=== PATIENT | female | born 1935 | race Caucasian/White ===

== ENCOUNTER 2018-08-07 18:57 | Inpatient (IN) | payer MEDICARE ==
[~2018-08-07] VITALS: Ht 170.2 cm; Wt 66.2 kg
[~2018-08-07 18:57] MED LIST: ALBUMIN (HUMAN) 25% 50 ML IV ONE; ALEN70TA10 PO; AMINOCAPROIC ACID 250 MG/ML 20 ML VIAL IV ONE; ASPI-555 PO; CALC-190 PO; CALCIUM CHLORIDE 100 MG/ML 10 ML SYG IVP ONE; FURO20TA6 PO; HEPARIN SODIUM 10000 UNIT/ML 1ML VIAL IJ ONE; HEPARIN SODIUM 1000UNIT/ML 10ML VIAL IV ONE; LATA2.5D2 OU; MAGNESIUM SULFATE 1 GM/2 ML VIAL IM ONE; MANNITOL 25% 50ML VIAL IV ONE; METO25 PO; NITR0.4T50 SL; PHENYLEPHRINE HCL 10 MG/ML 1ML VIAL IV ONE; SIMV20TA6 PO; SODIUM BICARB 8.4% 50ML SYRINGE IVP ONE; URSO500T9 PO
[2018-08-07] MEDS ORDERED: ASPIRIN 325 MG TABLET ONE (19:34)
[2018-08-07] MEDS ORDERED: DILTIAZEM HCL 125 MG/25 ML VIAL IV ONE ×2 (19:36→20:03)
[2018-08-07 19:50] LABS: BASOPHILS % (AUTO) 0.4 % (0.0-5.0); LYMPHOCYTES % (AUTO) 24.6 % (21.0-51.0); MEAN CORPUSCULAR HGB CONC 33.1 g/dL (32.0-36.0); MEAN CORPUSCULAR VOLUME 84.5 fL (79-99); MONOCYTES % (AUTO) 9.6 % (3.0-13.0); NEUTROPHILS % (AUTO) 64.4 % (40.0-77.0); NUCLEATED RED BLOOD CELLS 0.2 % (0.0-0.19); PLATELET COUNT (AUTO) 202 K/uL (130-400); RED BLOOD CELL COUNT(AUTO) 5.08 MIL/uL (4.00-5.50); RED CELL DISTRIBUTION WIDTH 16.3 % (11.0-15.5); WHITE BLOOD COUNT (AUTO) 6.9 K/uL (4.8-10.8)
[2018-08-07 20:00] LABS: CREATININE 0.9 mg/dL (0.5-1.5); POTASSIUM 3.3 mmol/L (3.5-5.1)
[2018-08-07 20:03] LABS: PARTIAL THROMBOPLASTIN TIME 27.1 SEC (26.3-35.5); PROTHROMBIN TIME 10.5 SEC (9.6-11.6)
[2018-08-07 20:11] LABS: ALBUMIN 3.9 g/dL (3.5-5.0); BILIRUBIN,TOTAL 0.6 mg/dL (0.2-1.0); TOTAL PROTEIN, SERUM 7.4 g/dL (6.0-8.3)
[2018-08-07] MEDS ORDERED: POTASSIUM CHLORIDE 20 MEQ ERTAB PO ONE (20:17)
[2018-08-07] MEDS: URSODIOL 500 MG PO SCH (21:00)
[2018-08-07] MEDS ORDERED: LATANOPROST 2.5 ML DROPS OU SCH (21:00)
[2018-08-07] MEDS: CALCIUM 600 + VITAMIN D 400 TABLET PO SCH (21:00)
[2018-08-07] MEDS: SIMVASTATIN 20 MG TABLET PO SCH (21:00)
[2018-08-07] MEDS ORDERED: NITROGLYCERIN 0.4 MG SL TAB SL SCH (21:00)
[2018-08-07] MEDS ORDERED: METOPROLOL TARTRATE 25 MG TAB PO SCH (21:00)
[2018-08-07] MEDS ORDERED: ONDANSETRON HCL 4 MG/2 ML VIAL IV PRN (21:15)
[2018-08-07] MEDS ORDERED: DILTIAZEM HCL 125 MG/25 ML 125 MG in SODIUM CHLORIDE 0.9% 100 ML IV PRN (21:15)
[2018-08-07] MEDS ORDERED: ACETAMINOPHEN 325 MG TAB PO PRN ×2 (21:15)
[2018-08-07] MEDS ORDERED: MORPHINE SULFATE 4 MG/1ML SYG IV PRN (21:15)
[2018-08-07 23:00] VITALS: BP 121/60
[2018-08-08] VITALS (12 sets, daily range): BP systolic 119–146; BP diastolic 53–79
[2018-08-08] MEDS ORDERED: ALENDRONATE SODIUM 35 MG TAB PO SCH (06:30)
[2018-08-08] MEDS: URSODIOL 500 MG PO SCH ×2 (09:00→21:00)
[2018-08-08] MEDS: ENOXAPARIN SODIUM 30 MG/0.3 ML SQ SCH ×2 (09:00→21:37)
[2018-08-08] MEDS ORDERED: SODIUM CHLORIDE 0.9% 500ML 500 ML IV SCH (09:48)
[2018-08-08] MEDS ORDERED: POTASSIUM CHLORIDE 10% ELIXIR 20 MEQ/15 ML UDCUP PO SCH (10:00)
[2018-08-08] MEDS: FAMOTIDINE/PF 20 MG/2 ML VIAL IV SCH ×2 (10:11→21:37)
[2018-08-08] MEDS: FUROSEMIDE 10 MG/ML 2ML VIAL IV SCH ×2 (10:11→21:37)
[2018-08-08] MEDS: CALCIUM 600 + VITAMIN D 400 TABLET PO SCH ×2 (10:12→21:37)
[2018-08-08] MEDS: ASPIRIN 325 MG TABLET PO SCH (10:12)
[2018-08-08 10:22] LABS: CREATININE 0.7 mg/dL (0.5-1.5); POTASSIUM 3.9 mmol/L (3.5-5.1)
--- NOTE | 2018-08-08 10:30 | NUR ---
NPO STATUS FOR CARDIAC CATH THIS AFTERNOON BY DR. DAVID.
[2018-08-08 10:48] LABS: PARTIAL THROMBOPLASTIN TIME 27.2 SEC (26.3-35.5)
[2018-08-08 10:54] LABS: INR 1.02 (0.85-1.15); PROTHROMBIN TIME 10.7 SEC (9.6-11.6)
--- NOTE | 2018-08-08 14:00 | NUR ---
TAKEN TO FACILITY ATTENDANT VIA BED.
[2018-08-08] MEDS ORDERED: NITROGLYCERIN 5 MG/ML 10 ML VIAL IV ONE (14:08)
[2018-08-08] MEDS ORDERED: IOHEXOL 350 MG/ML 100ML INFUS..BTL IV ONE ×2 (14:08→14:10)
[2018-08-08] MEDS ORDERED: IOHEXOL-350 50ML VIAL IV ONE (14:08)
[2018-08-08] MEDS ORDERED: LIDOCAINE HCL 2% 20ML ONE (14:08)
--- NOTE | 2018-08-08 14:54 | NUR ---
CLAIRE PLAN PATIENT DOWN FOR PROCEDURE. Addendum: 08/08/18 at 1455 by ROMAN CAPONE RN CM Amended: Links added.
--- NOTE | 2018-08-08 15:55 | NUR ---
BACK FROM [facility] RN. RIGHT GROIN WITH DRESSING DRY AND INTACT. BILATERAL PEDAL PULSES STRONG. INSTRUCTED ON BEDREST FOR 4 HOURS, VERBALIZED UNDERSTANDING. NORMAL SALINE AT 80CC/HR INITIATED X 1 LITER. WILL CONTINUE TO MONITOR.
[2018-08-08] MEDS: SODIUM CHLORIDE 0.9% 1000ML 1,000 ML IV SCH ×2 (16:00→22:01)
--- NOTE | 2018-08-08 18:47 | NUR ---
PER IGLESIA HARDY RN WITH DR. LE , PT WILL POSSIBLY HAVE MITRAL VALVE REPAIR DONE ON 08/10/18.
--- NOTE | 2018-08-08 19:40 | NUR ---
S/P LEFT HEART CATH. RT. GROIN SOFT WITHOUT BLEEDING OR HEMATOMA. PEDAL PULSES PALPABLE. BEDREST OVER AT 1999. REMINDED PATIENT NOT TO BEND OR LIFT RT LEG. PATIENT VERBALIZED UNDERSTANDING. WILL CONTINUE TO MONITOR.
--- NOTE | 2018-08-08 20:05 | NUR ---
BEDREST OVER. RT. GROIN CONTINUES TO BE SOFT WITHOUT BLEEDING OR HEMATOMA. PEDAL PULSES PALPABLE.
[2018-08-08] MEDS: SIMVASTATIN 20 MG TABLET PO SCH (21:38)
[2018-08-08] MEDS: METOPROLOL TARTRATE 25 MG TAB PO SCH (21:38)
--- NOTE | 2018-08-08 22:30 | NUR ---
RT. WOLF DC.
[2018-08-08] MEDS: LATANOPROST 2.5 ML DROPS OU SCH (22:37)
[2018-08-08 23:25] LABS: APPEARANCE,URINE Clear (CLEAR); BILIRUBIN,URINE Negative (NEGATIVE); COLOR,URINE Yellow (YELLOW); GLUCOSE, URINE (UA) Negative (NEGATIVE); KETONES,URINE Negative (NEGATIVE); LEUKOCYTE ESTERASE ,URINE Negative (NEGATIVE); NITRATE,URINE Negative (NEGATIVE); OCCULT BLOOD,URINE Negative (NEGATIVE); PH,URINE 6.5 (5.0-8.0); PROTEIN,URINE Negative (NEGATIVE); UROBILINOGEN,URINE 0.2 mg/dL (0.2-1.0)
[2018-08-09 03:00] VITALS: BP 140/82
--- NOTE | 2018-08-09 03:15 | NUR ---
RT. GROIN CONTINUES TO BE SOFT WITHOUT BLEEDING OR HEMATOMA. PEDAL PULSES PALPABLE.
[2018-08-09 03:49] LABS: HEMATOCRIT 40.6 % (36-48); MEAN CORPUSCULAR HEMOGLOBIN 27.6 pg (27.0-33.0); MEAN CORPUSCULAR HGB CONC 32.8 g/dL (32.0-36.0); PLATELET COUNT (AUTO) 216 K/uL (130-400); RED BLOOD CELL COUNT(AUTO) 4.84 MIL/uL (4.00-5.50); RED CELL DISTRIBUTION WIDTH 16.3 % (11.0-15.5); WHITE BLOOD COUNT (AUTO) 8.6 K/uL (4.8-10.8)
[2018-08-09 04:06] LABS: INR 1.02 (0.85-1.15); PARTIAL THROMBOPLASTIN TIME 29.6 SEC (26.3-35.5); PROTHROMBIN TIME 10.7 SEC (9.6-11.6)
[2018-08-09 04:12] LABS: ALBUMIN 3.3 g/dL (3.5-5.0); BILIRUBIN,TOTAL 0.6 mg/dL (0.2-1.0); CREATININE 0.6 mg/dL (0.5-1.5); POTASSIUM 3.6 mmol/L (3.5-5.1); TOTAL PROTEIN, SERUM 6.4 g/dL (6.0-8.3)
[2018-08-09 07:29] VITALS: BP 142/83
[2018-08-09] MEDS: CALCIUM 600 + VITAMIN D 400 TABLET PO SCH ×2 (08:13→23:05)
[2018-08-09] MEDS: ASPIRIN 325 MG TABLET PO SCH (08:13)
[2018-08-09] MEDS: METOPROLOL TARTRATE 25 MG TAB PO SCH ×2 (08:13→23:04)
[2018-08-09] MEDS: FAMOTIDINE/PF 20 MG/2 ML VIAL IV SCH ×2 (08:13→23:08)
[2018-08-09] MEDS: FUROSEMIDE 10 MG/ML 2ML VIAL IV SCH ×2 (08:14→23:04)
[2018-08-09] MEDS: URSODIOL 500 MG PO SCH ×2 (08:14→23:03)
--- NOTE | 2018-08-09 11:15 | NUR ---
PER IGLESIA HARDY RN (WITH DR. LE) MAY GIVE LOVENOX MORNING DOSE AND HOLD IT AFTERWARDS. PENDING SURGERY TOMORROW.
[2018-08-09 11:41] VITALS: BP 110/61
[2018-08-09] MEDS: ENOXAPARIN SODIUM 30 MG/0.3 ML SQ SCH (11:53)
--- NOTE | 2018-08-09 16:10 | NUR ---
DC PLAN VISITED WITH PATIENT. PATIENT LIVES WITH SPOUSE. INDEPENDENT ABLE TO PERFORM ADL'S. PATIENT HAS NO SERVICES OR DME'S. FEELS SAFE TO RETURN HOME. PLANNING TO GO BACK TO [place] ON DISCHARGE. Addendum: 08/09/18 at 1611 by ROMAN CAPONE RN CM Amended: Links added.
[2018-08-09 16:15] VITALS: BP 113/87
[2018-08-09] MEDS ORDERED: AMIODARONE HCL 150 MG in DEXTROSE 5%-WATER 100 ML IV SCH (19:30)
--- NOTE | 2018-08-09 19:30 | NUR ---
AMIODARONE DRIP INFUSING AT 33.3ML/HR.
[2018-08-09] MEDS ORDERED: AMIODARONE HCL 900 MG in DEXTROSE 5%-WATER 500 ML IV SCH (19:45)
[2018-08-09 19:48] VITALS: BP 130/67
--- NOTE | 2018-08-09 20:00 | NUR ---
REMINDED PATIENT NPO AFTER MIDNIGHT, MICS MVR IN A.M. PATIENT VERBALIZED UNDERSTANDING.
[2018-08-09] MEDS ORDERED: POTASSIUM CHLORIDE 10% ELIXIR 20 MEQ/15 ML UDCUP PO PRN (20:15)
[2018-08-09] MEDS ORDERED: POTASSIUM CHLORIDE 20MEQ/100ML 100 ML IV PRN (20:15)
[2018-08-09] MEDS ORDERED: LIDOCAINE HCL-MPF 1% 2ML VIAL IVP PRN (20:15)
[2018-08-09] MEDS ORDERED: POTASSIUM CHLORIDE 20 MEQ ERTAB PO PRN (20:15)
--- NOTE | 2018-08-09 20:15 | NUR ---
PATIENT PREPPED FOR SURGERY BY ELGIN ALVAREZ. 1ST HIBICLENS SHOWER STARTED.
[2018-08-09] MEDS ORDERED: POTASSIUM CHLORIDE 10 MEQ/TAB.SA PO ONE ×4 (20:16→23:00)
[2018-08-09] MEDS: LATANOPROST 2.5 ML DROPS OU SCH (20:33)
[2018-08-09] MEDS: SIMVASTATIN 20 MG TABLET PO SCH (23:05)
[2018-08-09 23:58] VITALS: BP 128/69
[2018-08-10] VITALS (54 sets, daily range): BP systolic 101–174; BP diastolic 37–72
--- NOTE | 2018-08-10 01:30 | NUR ---
AMIODARONE DRIP DECREASED TO 16.6ML/HR.
[2018-08-10 04:15] LABS: INR 1.02 (0.85-1.15); PROTHROMBIN TIME 10.7 SEC (9.6-11.6)
[2018-08-10 04:43] LABS: HEMATOCRIT 40.2 % (36-48); MEAN CORPUSCULAR HEMOGLOBIN 28.1 pg (27.0-33.0); MEAN CORPUSCULAR HGB CONC 33.4 g/dL (32.0-36.0); MEAN CORPUSCULAR VOLUME 84.2 fL (79-99); PLATELET COUNT (AUTO) 212 K/uL (130-400); RED BLOOD CELL COUNT(AUTO) 4.78 MIL/uL (4.00-5.50); RED CELL DISTRIBUTION WIDTH 16.3 % (11.0-15.5)
[2018-08-10 04:45] LABS: CREATININE 0.7 mg/dL (0.5-1.5); POTASSIUM 4.1 mmol/L (3.5-5.1)
--- NOTE | 2018-08-10 05:00 | NUR ---
2ND HIBICLENS SHOWER STARTED.
[2018-08-10] MEDS: METOPROLOL TARTRATE 25 MG TAB PO SCH (06:54)
--- NOTE | 2018-08-10 06:55 | NUR ---
METOPROLOL 75MG PO GIVEN. O.R. NURSES WITH PATIENT. PATIENT TAKEN TO O.R.
[2018-08-10] MEDS ORDERED: BACITRACIN 50,000 UNIT VIAL ONE (07:26)
[2018-08-10] MEDS ORDERED: THROMBIN-JMI 5000 UNIT/VIAL TP ONE (07:32)
[2018-08-10] MEDS ORDERED: DELNIDO FORMULA 1 BAG IV ONE (07:32)
[2018-08-10] MEDS ORDERED: NOREPINEPHRINE BITARTRATE 1 MG/1 ML ML IV ONE (07:57)
[2018-08-10] MEDS ORDERED: ESMOLOL HCL 10 MG/ML 10 ML VIAL ONE (07:57)
[2018-08-10] MEDS ORDERED: PROTAMINE SULFATE 10 MG/ML 25ML VIAL IV ONE (07:57)
[2018-08-10] MEDS ORDERED: LIDOCAINE PF 2% 5ML ABBOJECT ONE (07:57)
[2018-08-10] MEDS ORDERED: HEPARIN SODIUM 1000UNIT/ML 10ML VIAL ONE ×2 (07:57→11:17)
[2018-08-10] MEDS ORDERED: EPINEPHRINE 1 MG/ML AMPULE ONE (07:57)
[2018-08-10] MEDS ORDERED: SODIUM BICARB 50MEQ 50ML VIAL ONE (07:57)
[2018-08-10] MEDS ORDERED: AMINOCAPROIC ACID 250 MG/ML 20 ML VIAL IV ONE (07:57)
[2018-08-10] MEDS ORDERED: ROCURONIUM 10MG/1ML SYR 10 MG/ML ML ONE (07:58)
[2018-08-10] MEDS ORDERED: MIDAZOLAM HCL 1 MG/ML 5ML VIAL ONE (07:58)
[2018-08-10] MEDS ORDERED: FENTANYL CITRATE PF 50 MCG/1 ML 20ML VIAL IJ ONE (07:58)
[2018-08-10] MEDS ORDERED: PROPOFOL 10 MG/ML 20ML VIAL IV ONE (07:58)
[2018-08-10] MEDS ORDERED: KETAMINE 50MG/ML SYRINGE 50 MG/ML DISP.SYRIN IV ONE (07:59)
[2018-08-10] MEDS ORDERED: NITROGLYCERIN 50 MG/D5% WATER 1 BOT ONE (08:02)
[2018-08-10] MEDS ORDERED: AMIODARONE HCL 50 MG/ML 3 ML VIAL ONE (08:02)
[2018-08-10] MEDS ORDERED: CEFUROXIME SODIUM 1.5 GM VIAL ONE (08:33)
[2018-08-10 08:35] LABS: ABG BASE EXCESS -4.1 mmol/L (-2.0-3.0); ABG HCO3 19.8 mmol/L (21.0-28.0); ABG OXYGEN SATURATION 99.5 % (95.0-99.0); ABG PCO2 33 mmHg (32-45)
[2018-08-10] MEDS ORDERED: OCTYL 2-CYANOACRYLATE 1 EACH TP ONE (08:49)
[2018-08-10] MEDS: FAMOTIDINE/PF 20 MG/2 ML VIAL IV SCH ×3 (09:00→21:00)
[2018-08-10] MEDS ORDERED: MILRINONE-D5W 20 MG/100 ML 100 ML IV ONE (09:28)
[2018-08-10] MEDS ORDERED: SODIUM CHLORIDE 0.9% 1000ML 1,000 ML IV ONE (09:48)
[2018-08-10] MEDS ORDERED: SODIUM CHLORIDE 0.9% 500ML 500 ML IV SCH (09:52)
[2018-08-10 09:55] LABS: ABG BASE EXCESS -2.6 mmol/L (-2.0-3.0); ABG HCO3 20.5 mmol/L (21.0-28.0); ABG PCO2 29 mmHg (32-45)
[2018-08-10] MEDS ORDERED: ALBUMIN (HUMAN) 5% 250 ML IV PRN (10:00)
[2018-08-10] MEDS ORDERED: MORPHINE SULFATE 2 MG/ML 1ML SYG IV PRN (10:00)
[2018-08-10] MEDS ORDERED: MORPHINE SULFATE 4 MG/1ML SYG IV PRN (10:00)
[2018-08-10] MEDS ORDERED: POTASSIUM PHOS 15 mMOL+NS250ML 250 ML IV PRN (10:00)
[2018-08-10] MEDS ORDERED: TRAMADOL HCL 50 MG TABLET PO PRN ×2 (10:00)
[2018-08-10] MEDS ORDERED: NICARDIPINE HCL 100 MG in SODIUM CHLORIDE 0.9% 60 ML IV PRN (10:00)
[2018-08-10] MEDS ORDERED: DEXTROSE 50%-WATER 50 ML DISP.SYRIN IV PRN (10:00)
[2018-08-10] MEDS ORDERED: SODIUM CHLORIDE 0.9% 250 ML IV PRN (10:00)
[2018-08-10] MEDS ORDERED: NITROGLYCERIN 50 MG/D5% WATER 250 BOT IV SCH (10:00)
[2018-08-10] MEDS ORDERED: ONDANSETRON HCL 4 MG/2 ML VIAL IV PRN (10:00)
[2018-08-10] MEDS ORDERED: PROPOFOL 1000 MG/100 ML 100 ML IV PRN (10:00)
[2018-08-10] MEDS ORDERED: ACETAMINOPHEN 650 MG SUPPOSITORY RC PRN (10:00)
[2018-08-10] MEDS ORDERED: EPINEPHRINE 8 MG in DEXTROSE 5%-WATER 250 ML IV PRN (10:00)
[2018-08-10] MEDS ORDERED: MAGNESIUM 2GM PREMIX 50ML 50 ML IV PRN (10:00)
[2018-08-10] MEDS ORDERED: AMINOCAPROIC ACID 15,000 MG in SODIUM CHLORIDE 0.9% 250 ML IV SCH (10:00)
[2018-08-10] MEDS ORDERED: SODIUM CHLORIDE 0.9% 10 ML VIAL IVP PRN (10:00)
[2018-08-10] MEDS ORDERED: SODIUM CHLORIDE 0.9% 1000ML 1,000 ML IV SCH (10:00)
[2018-08-10] MEDS ORDERED: GLUCAGON 1MG KIT 1 MG ML IM PRN (10:00)
[2018-08-10] MEDS ORDERED: ACETAMINOPHEN 325 MG TAB PO PRN (10:00)
[2018-08-10] MEDS: AMBU PUMP 1 EACH EACH MISC SCH ×2 (10:00→11:21)
[2018-08-10] MEDS ORDERED: NOREPINEPHRINE 4MG/NS 250ML 250 ML IV PRN (10:00)
[2018-08-10 10:34] LABS: ABG BASE EXCESS 2.5 mmol/L (-2.0-3.0); ABG HCO3 25.3 mmol/L (21.0-28.0); ABG OXYGEN SATURATION 98.7 % (95.0-99.0); ABG PCO2 32 mmHg (32-45)
[2018-08-10] MEDS ORDERED: CEFAZOLIN SODIUM 1 GM VIAL IVP PRN (11:00)
[2018-08-10 11:04] LABS: ABG BASE EXCESS -1.2 mmol/L (-2.0-3.0); ABG HCO3 22.6 mmol/L (21.0-28.0); ABG OXYGEN SATURATION 98.8 % (95.0-99.0); ABG PCO2 35 mmHg (32-45)
--- NOTE | 2018-08-10 11:31 | NUR ---
FALL RISK INTERVENTION No all measures indicated as implemented as they are not appropriate in the immediate post op setting. Addendum: 08/10/18 at 1322 by TRAY DUMONT RN RN Amended: Links added.
--- NOTE | 2018-08-10 11:31 | NUR ---
POST OP ASSESSMENT Received pt immediately post op. Orally intubated - vent settings as recorded. Not yet responsive to verbal/tactile stimulation. VS/hemodynamics as recorded. Received pt on IV levophed gtt @5mcg/min, epinephrine gtt @0.07mcg/kg/min, milrinone gtt @0.3mcg/kg/min, amicar @50ml/hr. Will wean/titrate to effect. Refer to separate flow sheet for VS documentation. ST on tele - strong apical heart tones. Skin is cool, dry. Right chest wall drsgs clean and dry. Epicardial leads taped securely to chest wall. Rt pleural CT patent - sanguineous drainage. Small air leak noted without crepitus. CT to 20cm suction. Pain pump infusion catheter taped securely to right anterior chest wall, lateral to CT insertion site. Pump infusion rate 7ml/hr. Abd flat - absent bowel sounds. OGT placement verified per routine - placed to LIS. Dry drsg to right groin - no evidence of oozing/hematoma. F/C patent - clear yellow urine. ANA hose applied to BLE's. Right IJ CVP line in use. Left radial arterial line patent with brisk blood return, acceptable waveform. PIV to LAF patent - converted to SL. SL to RAC intact. Assessment completed/recorded.
[2018-08-10 12:01] LABS: ABG BASE EXCESS -3.9 mmol/L (-2.0-3.0); ABG HCO3 21.2 mmol/L (21.0-28.0); ABG OXYGEN SATURATION 98.4 % (95.0-99.0); ABG PCO2 39 mmHg (32-45)
[2018-08-10 12:10] LABS: HEMATOCRIT 37.3 % (36-48); MEAN CORPUSCULAR HEMOGLOBIN 27.5 pg (27.0-33.0); MEAN CORPUSCULAR HGB CONC 32.5 g/dL (32.0-36.0); MEAN CORPUSCULAR VOLUME 84.6 fL (79-99); PLATELET COUNT (AUTO) 298 K/uL (130-400); RED BLOOD CELL COUNT(AUTO) 4.41 MIL/uL (4.00-5.50); RED CELL DISTRIBUTION WIDTH 16.5 % (11.0-15.5); WHITE BLOOD COUNT (AUTO) 24.9 K/uL (4.8-10.8)
[2018-08-10 12:22] LABS: INR 1.07 (0.85-1.15); PARTIAL THROMBOPLASTIN TIME 28.2 SEC (26.3-35.5); PROTHROMBIN TIME 11.2 SEC (9.6-11.6)
[2018-08-10 12:26] LABS: CREATININE 0.8 mg/dL (0.5-1.5); MAGNESIUM 3.2 mg/dL (1.80-2.40); PHOSPHORUS 3.7 mg/dL (2.5-4.9); POTASSIUM 3.7 mmol/L (3.5-5.1)
[2018-08-10] MEDS: POTASSIUM CHLORIDE 20MEQ/100ML 100 ML IV PRN ×5 (12:28→23:07)
[2018-08-10] MEDS: INSULIN REGULAR, HUMAN 3ML 100 UNIT in SODIUM CHLORIDE 0.9% 99 ML IV SCH ×2 (12:32)
--- NOTE | 2018-08-10 13:00 | NUR ---
FAMILY UPDATE Pt's spouse and daughter in to see pt - updated. Discussed post op plan of care. Discussed [facility] visitation policy. [facility] phone number provided to pt's daughter. Questions addressed. Pt not yet arousable with verbal or tactile stimulation. Noted spontaneous movement of RUE. No eye opening observed.
--- NOTE | 2018-08-10 13:59 | NUR ---
MD UPDATE By way of MD's nurse, made aware of pt's slow neurological response. No eye opening to verbal/tactile/noxious stimulation. Rnadom movement of RUE observed. No withdraw of LUE/LLE to painful stimulation. Facial grimacing observed. Pupils are equal, sluggishly reactive to light. As instructed, will keep pt's IBP 150-160mmHg. Will observe.
--- NOTE | 2018-08-10 14:59 | NUR ---
STATUS No improvement in pt's neuro status. Only spontaneous movement of RUE noted. No eye opening. No reasonable response to noxious stimulation to LUE/LLE. Will observe. Again, MD updated by way of his nurse. No new orders received.
[2018-08-10 15:36] LABS: ABG BASE EXCESS -4.6 mmol/L (-2.0-3.0); ABG HCO3 19.6 mmol/L (21.0-28.0); ABG OXYGEN SATURATION 98.4 % (95.0-99.0); ABG PCO2 34 mmHg (32-45)
--- NOTE | 2018-08-10 15:56 | NUR ---
MD UPDATE Spoke to by phone - updated on pt's status, specifically her current neuro status. No additional orders received.
[2018-08-10] MEDS: SODIUM BICARB 50MEQ 50ML VIAL IV PRN ×3 (16:00→20:17)
[2018-08-10] MEDS: CALCIUM GLUCONATE 1 GM in SODIUM CHLORIDE 0.9% 50 ML IV PRN ×4 (16:06→22:14)
--- NOTE | 2018-08-10 16:30 | NUR ---
STATUS Random movement of RUE/RLE noted. No eye opening in response to stimulation. Still no appreciable movement of LUE/LLE to painful stimulation. ST on tele. VS maintained.
--- NOTE | 2018-08-10 17:30 | NUR ---
STATUS No acute changes in overall assessment. No eye opening or purposeful response to stimulation. VS maintained.
[2018-08-10 17:54] LABS: ABG HCO3 22.6 mmol/L (21.0-28.0); ABG OXYGEN SATURATION 98.2 % (95.0-99.0); ABG PCO2 34 mmHg (32-45)
[2018-08-10] MEDS ORDERED: MILRINONE-D5W 20 MG/100 ML 100 ML IV PRN (18:15)
--- NOTE | 2018-08-10 19:20 | NUR ---
ASSESSMENT PT ASSESSED AT THIS TIME. PT INTUBATED ON MECHANICAL VENTILATION VIA ET TUBE 7.5 TAPPED AT APPROXIMATELY 21 CM LIP. ORAL CARE DONE. VENT SETTINGS SIMV RATE 4, VT 500, PEEP 5, PS 5, FIO2 40%. CLEAR BILATERAL BREATH SOUNDS AUSCULTATED. OG TUBE NOTED PLACEMENT ASSESSED AND CONFIRMED WITH AIR BOLUS THEN PLACED BACK TO LI BROWN DRAINAGE NOTED NO BOWEL SOUNDS NOTED AT THIS TIME. DE LEÓN TO GRAVITY DRAINING WELL CLEAR YELLOW URINE. BILATERAL LOWER EXT WITH ANA HOSE. RIJ CORDIS INFUSING WELL. LEFT RADIAL A LINE WITH GOOD WAVEFORM. IV MEDICATIONS LEVOPHED AT 2MCG/MIN, EPI AT 0.05 MCG/KG/MIN, MILRINONE AT 0.3 MCG/KG/MIN, INSULIN AT 7 UNITS/HR AND NS AT KVO. PT MOVING ONLY RIGHT SIDE AT THIS TIME DOES NOT FOLLOW COMMANDS OR OPENS EYES SPONTANEOUSLY PUPILS EQUAL AND SLUGGISH REACTION LEFT SIDE IS FLACCID AT THIS TIME DR. LE IS AWARE. Addendum: 08/10/18 at 2237 by ILIANA HAWK RN RN INCISION TO RIGHT CHEST DRY AND INTACT. CHEST TUBE X 1 TO 20CM H20 SUCTION NOTED MODERATE AIR LEAK NOTED DURING INSPIRATION. AMBU PAIN PUMP INFUSING AT 7ML/HR. PACING WIRES NOTED X 2 SECURED TO WALL.
[2018-08-10 20:11] LABS: ABG BASE EXCESS -8.7 mmol/L (-2.0-3.0); ABG HCO3 18.8 mmol/L (21.0-28.0); ABG OXYGEN SATURATION 98.7 % (95.0-99.0); ABG PCO2 46 mmHg (32-45)
--- NOTE | 2018-08-10 20:15 | NUR ---
SEIZURE PT HAD GENERALIZED TONIC CLONIC SEIZURE LASTING APPROXIMATELY [address] HARMON WALKED IN POST SEIZURE AND WAS NOTIFIED. DR. LE TO BE NOTIFIED
--- NOTE | 2018-08-10 20:18 | NUR ---
DR. MIMI LE NOTIFIED AT THIS TIME OF SEIZURE AND NEW ORDERS RECEIVED AND WILL BE CARRIED OUT. BICARB REPLACED ON ABG PER PROTOCOL
[2018-08-10 20:55] LABS: ABG BASE EXCESS 1.4 mmol/L (-2.0-3.0); ABG HCO3 25.8 mmol/L (21.0-28.0); ABG OXYGEN SATURATION 98.2 % (95.0-99.0); ABG PCO2 40 mmHg (32-45)
[2018-08-10] MEDS: LATANOPROST 2.5 ML DROPS OU SCH (21:00)
[2018-08-10] MEDS ORDERED: LEVETIRACETAM 500 MG in SODIUM CHLORIDE 0.9% 100 ML IV SCH (21:00)
[2018-08-10] MEDS ORDERED: CEFUROXIME SODIUM 750 MG/VIAL IVP SCH (21:00)
[2018-08-10] MEDS: SIMVASTATIN 20 MG TABLET PO SCH (21:00)
[2018-08-10] MEDS: CEFUROXIME SODIUM 1.5 GM VIAL IVP SCH (21:05)
--- NOTE | 2018-08-10 21:05 | NUR ---
FAMILY FAMILY CALLED NO ANSWER AT THIS TIME MESSAGE LEFT TO CALL BACK WHEN MESSAGE WAS RECEIVED.
--- NOTE | 2018-08-10 21:45 | NUR ---
CT SCAN PT TAKEN TO CT SCAN AT 2114 AND RETURNED AT THIS TIME. PT BEGINNING TO MOVE RIGHT UPPER EXT AGAIN PREVIOUS NO MOVING LEFT DOES WITHDRAW MINIMALLY TO THAT SIDE. PT TOLERATED WELL NO ADVERSE REACTIONS NOTED. WAS TAKEN VIA AMBUBAG TO ET TUBE. VS WNL PT WAS ACCOMPANIED BY RN, RT, RADIOLOGY, AND COURT MONITOR.
--- NOTE | 2018-08-10 22:07 | NUR ---
CT REPORT CT REPORT GIVEN TO DR. LE NO NEW ORDERS AT THIS TIME.
--- NOTE | 2018-08-10 22:40 | NUR ---
DR. MIMI LE CALLED AT THIS TIME UPDATED ON PT STATUS NEW ORDERS RECEIVED AND WILL BE CARRIED OUT
[2018-08-10] MEDS ORDERED: ASCORBIC ACID 500 MG TAB PO SCH (22:45)
[2018-08-10] MEDS ORDERED: ALLOPURINOL 300 MG TABLET ONE (22:45)
[2018-08-10] MEDS ORDERED: DEXAMETHASONE SOD PHOSPHATE 4 MG/ML 1ML VIAL IVP ONE (22:45)
[2018-08-10] MEDS ORDERED: ALLOPURINOL 300 MG TABLET PO SCH (22:45)
[2018-08-10] MEDS ORDERED: ASCORBIC ACID 500 MG TAB ONE (22:46)
[2018-08-10] MEDS ORDERED: DEXAMETHASONE SOD PHOSPHATE 4 MG/ML 1ML VIAL ONE (22:46)
[2018-08-11] VITALS (27 sets, daily range): BP systolic 110–185; BP diastolic 45–87
[2018-08-11] MEDS: INSULIN REGULAR, HUMAN 3ML 100 UNIT in SODIUM CHLORIDE 0.9% 99 ML IV SCH ×2 (00:08)
[2018-08-11 00:14] LABS: ABG BASE EXCESS 4.4 mmol/L (-2.0-3.0); ABG HCO3 27.8 mmol/L (21.0-28.0); ABG OXYGEN SATURATION 99.3 % (95.0-99.0); ABG PCO2 37 mmHg (32-45)
[2018-08-11] MEDS: CALCIUM GLUCONATE 1 GM in SODIUM CHLORIDE 0.9% 50 ML IV PRN ×2 (00:15→04:37)
--- NOTE | 2018-08-11 00:37 | NUR ---
STATUS NO ACUTE CHANGES NOTED PT RESTING COMFORTABLY CONTINUES TO ONLY MOVE RIGHT SIDE EXTREMITIES DOES NOT FOLLOW COMMANDS. NO SEIZURE ACTIVITY NOTED. WILL CONTINUE TO MONITOR.
--- NOTE | 2018-08-11 01:23 | NUR ---
NITRO LEVOPHED AND EPI WEANED OFF AND NITROGLYCERIN STARTED AT 10MCG/MIN. SBP 190'S GOAL IS 160-180
--- NOTE | 2018-08-11 01:58 | NUR ---
NITRO NITRO HELD BP BELOW PARAMETERS AND LEVOPHED RESTARTED AT 2 MCG/MIN SBP 140'S. WILL CONTINUE TO MONITOR
--- NOTE | 2018-08-11 03:09 | NUR ---
SEIZURE PT HAD ANOTHER SEIZURE AT THIS TIME DR. LE NOTIFIED NEW ORDER RECEIVED FOR REPEAT DOSE OF KEPPRA.
[2018-08-11] MEDS ORDERED: LEVETIRACETAM 500 MG in SODIUM CHLORIDE 0.9% 100 ML IV ONE (03:15)
--- NOTE | 2018-08-11 03:15 | NUR ---
CRITICAL CARE CRITICAL CARE PAGED DUE TO REPEAT SEIZURE PENDING CALL BACK
[2018-08-11] MEDS ORDERED: LORAZEPAM 2 MG/ML 1 ML VIAL ONE (03:20)
--- NOTE | 2018-08-11 03:24 | NUR ---
SEIZURE PT HAD REPEAT SEIZURE AT THIS TIME ALL HAVE BEEN CLONIC TONIC LASTING APPROXIMATELY 1MIN THIS TIME. ATIVAN 1MG IV GIVEN PENDING CRITICAL CARE TEMP HAS INCREASED TO 103F FROM 102F. PT GIVEN BATH AND FLATBED TRUCK DRIVER CALLED FOR COOLING BLANKET
--- NOTE | 2018-08-11 03:30 | NUR ---
DIPRIVAN PT HAD 3RD SEIZURE IN LAST 30MINS CRITICAL CARE REPAGED AND PT STARTED ON DIPRIVAN AT 20 MCG/KG/MIN.
--- NOTE | 2018-08-11 03:45 | NUR ---
STATUS NO SEIZURE ACTIVITY AT THIS TIME PENDING CRITICAL CARE CALL BACK
--- NOTE | 2018-08-11 04:10 | NUR ---
CRITICAL CARE SPOKE WITH IGLESIA PHILLIP LAWN CARETAKER AT THIS TIME NOTIFIED OF PT STATUS. NEW ORDERS RECEIVED AND WILL BE CARRIED OUT. PT WITH NO SEIZURE ACTIVITY AT THIS TIME. Addendum: 08/11/18 at 0517 by ILIANA HAWK RN RN SHE WAS MADE AWARE THAT PT WAS GIVEN 1MG OF ATIVAN AND STARTED ON SEDATION.
[2018-08-11] MEDS ORDERED: LORAZEPAM 2 MG/ML 1 ML VIAL IVP PRN (04:15)
[2018-08-11 04:25] LABS: ABG BASE EXCESS 6.1 mmol/L (-2.0-3.0); ABG HCO3 30.6 mmol/L (21.0-28.0); ABG OXYGEN SATURATION 99.9 % (95.0-99.0); ABG PCO2 44 mmHg (32-45)
[2018-08-11 04:27] LABS: MEAN CORPUSCULAR HEMOGLOBIN 27.2 pg (27.0-33.0); MEAN CORPUSCULAR HGB CONC 32.4 g/dL (32.0-36.0); MEAN CORPUSCULAR VOLUME 83.8 fL (79-99); PLATELET COUNT (AUTO) 232 K/uL (130-400); RED BLOOD CELL COUNT(AUTO) 4.17 MIL/uL (4.00-5.50); RED CELL DISTRIBUTION WIDTH 15.9 % (11.0-15.5); WHITE BLOOD COUNT (AUTO) 19.1 K/uL (4.8-10.8)
[2018-08-11] MEDS ORDERED: CALCIUM GLUCONATE 1 GM/10 ML VIAL IV ONE (04:35)
[2018-08-11 04:47] LABS: CREATININE 0.9 mg/dL (0.5-1.5); INR 1.1 (0.85-1.15); MAGNESIUM 2.2 mg/dL (1.80-2.40); PARTIAL THROMBOPLASTIN TIME 27.6 SEC (26.3-35.5); PHOSPHORUS 3.7 mg/dL (2.5-4.9); POTASSIUM 4.2 mmol/L (3.5-5.1); PROTHROMBIN TIME 11.5 SEC (9.6-11.6)
--- NOTE | 2018-08-11 06:07 | NUR ---
STATUS PT REMAINS ON DIPRIVAN NO SEIZURE ACTIVITY NOTED. REMAINS ON COOLING BLANKET TEMP 100 F AT THIS TIME WILL CONTINUE TO MONITOR.
--- NOTE | 2018-08-11 06:20 | NUR ---
FAMILY DAUGHTER RETURNED CALL AT THIS TIME UPDATED ON OVERNIGHT EVENTS. WILL BE HERE IN AM WITH PT'S .
--- NOTE | 2018-08-11 06:29 | NUR ---
DR. MIMI LE CALLED UPDATED ON PT STATUS. NEW ORDERS RECEIVED TO TRANSFER TO [facility] NEURO CARE Addendum: 08/11/18 at 0631 by ILIANA HAWK RN RN PUMP AND STILL OPERATOR NOTIFIED
--- NOTE | 2018-08-11 06:50 | NUR ---
FAMILY DAUGHTER CYRUS AND NANCY NOTIFIED OF ORDERS TO TRANSFER TO [facility] FOR HIGHER LEVEL OF CARE BOTH AGREED AND CONSENTED OVER TELEPHONE TRAY COWART 2ND WITNESS.
--- NOTE | 2018-08-11 07:00 | NUR ---
ASSESSMENT Remains orally intubated now on IV propofol for sedation. VS/hemodynamics as recorded. SR on tele with strong apical heart tones. Skin is hot, dry. Cooling blanket remains in use - temp set point 75-degrees - pt temperature probe not in use. Temperature sensing F/C remains in place. Surgical drsgs remain clean and dry. Epicardial leads remain in place - secured to chest wall. Small air leak noted to CT atrium without evidence of SQ emphysema. CT with serosanguineous drainage - 20cm suction to CT. Diminished breath sounds. Abd soft, flat with hypoactive bowel sounds. OGT remains in place. F/C patent - cloudy yellow urine. ANA hose to BLE's. Right IJ CVP line remains patent. Left radial arterial line patent with acceptable waveform. PIV to left forearm patent. With stimulation, no eye opening observed. Occasional facial grimacing observed with movement of extremities. Delayed gag reflex with oral care/oral suctioning. No cough elicited with oral care/suctioning. Received pt on IV levophed gtt @7mcg/min, milrinone gtt @0.3mcg/kg/min, epinephrine gtt @0.03mcg/kg/min, propofol gtt @ 20mcg/kg/min. Spoke to by phone at approximately 0645 - updated. Instructed to keep sedation at current dose and maintain SBP above 160 (less than 180). Informed of current VS/hemodynamics. No additional orders received.
--- NOTE | 2018-08-11 07:47 | NUR ---
FAMILY UPDATE Pt's spouse at daughter at bedside - updated. Discussed plan of care. Questions addressed. Emotional support offered.
--- NOTE | 2018-08-11 08:30 | NUR ---
STATUS REPORT Report phoned to Mariel RN, [facility] ICU nurse receiving pt. Pending pt transfer to [facility] ICU via EMS. At time of report, sedation turned off for sedation vacation. NIH stroke score attempted after sedation off x15min. Using NIH stroke scale tool from NIH website, score of 19 obtained. Off sedation, no eye opening observed. Withdraw to pain observed to both RUE/RLE. Trace movement observed in response to noxious stimulation - LUE/LLE. Facial grimacing observed with noxious stimulation. Generalized tremulousness of all extremities noted - no nystagmus noted. Increased IBP noted and vent "bucking" by pt - sedation resumed - propofol @20mcg/kg/min. Will observe.
--- NOTE | 2018-08-11 08:47 | NUR ---
EMS NOTIFICATION [facility] contacted regarding pt transfer.
[2018-08-11] MEDS ORDERED: FUROSEMIDE 10 MG/ML 2ML VIAL IV SCH (09:00)
[2018-08-11] MEDS: FAMOTIDINE/PF 20 MG/2 ML VIAL IV SCH ×2 (09:00→09:10)
[2018-08-11] MEDS ORDERED: PANTOPRAZOLE 40 MG/VIAL IV SCH (09:00)
[2018-08-11] MEDS ORDERED: ASPIRIN 81 MG EC TAB PO SCH (09:00)
[2018-08-11] MEDS: CEFUROXIME SODIUM 1.5 GM VIAL IVP SCH (09:01)
--- NOTE | 2018-08-11 09:39 | NUR ---
[facility] NOTIFICATION Second phone call placed to [facility] regarding pt transfer - reenforced urgency of need for transfer.
--- NOTE | 2018-08-11 10:30 | NUR ---
PT STATUS [id number] in CVR - updated. Pt's family members at bedside - updated by MD. MD discussed, at length, pt status and post op course. Questions addressed by . discussed tentative plan of care post transfer. Pt off ICU bedside monitor and placed on EMS transport monitor. VS status verified. Pt then placed on EMS transport vent at 1055 - current vent settings continued. Pt moved from bed to stretcher. Pt transported with [facility] CVR infusion pumps with sufficient volumes of epinephrine, levophed, propofol and milrinone to allow for safe transport. According to Cary JONES, [facility] property will be returned by EMS personnel after pt has been safely transported to receiving facility. ICU director at bedside at time of pt transfer.
[2018-08-11] MEDS ORDERED: PROPOFOL 1000 MG/100 ML 100 ML IV ONE (10:47)
--- NOTE | 2018-08-11 11:03 | NUR ---
TRANSFER Pt transferred with CVP line, arterial line, PIV, F/C, CT in place.
--- NOTE | 2018-08-11 11:03 | NUR ---
TRANSFER Transported by EMS to [facility].
--- NOTE | 2018-08-11 14:25 | NUR ---
10:55 PATIENT IS BEING TRANSFERRED TO ANOTHER FACILITY. Addendum: 08/11/18 at 1426 by JONES GRIFFIN, PT PT Amended: Links added.
[2018-08-12] MEDS ORDERED: FUROSEMIDE 20 MG TABLET PO SCH (09:00)
[2018-08-15] MEDS ORDERED: ALENDRONATE SODIUM 35 MG TAB PO SCH (06:30)
== END 2018-08-11 11:10 | disposition short-term general hospital (02) | DRG 216 ==
LOC: EDH 18:57 → EDHIP 20:45 → 2DH 22:17 → 2CV 08-10 09:10
PROVIDERS: ADMIT Hospitalist; ATTEND Hospitalist
PROC: B2111ZZ Fluoroscopy of Multiple Coronary Arteries using Low Osmolar Contrast (ICD-10-PCS; 2018-08-08)
PROC: B2151ZZ Fluoroscopy of Left Heart using Low Osmolar Contrast (ICD-10-PCS; 2018-08-08)
PROC: 4A023N8 Measurement of Cardiac Sampling and Pressure, Bilateral, Percutaneous Approach (ICD-10-PCS; 2018-08-08)
PROC: 5A1221Z Performance of Cardiac Output, Continuous (ICD-10-PCS; 2018-08-10)
PROC: 02RG08Z Replacement of Mitral Valve with Zooplastic Tissue, Open Approach (ICD-10-PCS; principal; 2018-08-10 07:30)
DX: I34.0 Nonrheumatic mitral (valve) insufficiency (principal); I50.43 Acute on chronic combined systolic (congestive) and diastolic (congestive) heart failure; I48.92 Unspecified atrial flutter; G81.94 Hemiplegia, unspecified affecting left nondominant side; K74.5 Biliary cirrhosis, unspecified; I25.10 Atherosclerotic heart disease of native coronary artery without angina pectoris; E78.5 Hyperlipidemia, unspecified; G40.909 Epilepsy, unspecified, not intractable, without status epilepticus; I48.0 Paroxysmal atrial fibrillation; M81.0 Age-related osteoporosis without current pathological fracture; Z95.1 Presence of aortocoronary bypass graft; Z95.5 Presence of coronary angioplasty implant and graft
CPT/HCPCS: 36415; 70450; 71045; 76998; 80048; 80053; 80061; 81003; 82330; 82435; 82550; 82803; 82947; 82948; 83605; 83735; 83874; 83880; 84100; 84132; 84295; 84484; 85018; 85025; 85027; 85347; 85610; 85730; 86850; 86900; 86901; 86922; 88305; 93005; 93318; 93460; 93880; 94002; 94003; 94010; 99291; A7048; C1760; C1769; C1894; C9113; G0378; J0171; J0282; J0610; J0697; J1100; J1644; J1650; J1815; J1940; J1953; J2001; J2060; J2150; J2250; J2260; J2370; J2704; J2720; J3010; J3475; J3480; J3490; J7030; J7040; J7060; P9047; Q9967